=== PATIENT | male | born 1940 | race Caucasian/White ===

== ENCOUNTER 2016-12-20 09:16 | Day surgery (SDC) | payer MEDICARE, OTHER ==
--- NOTE | ~2016-12-20 | EGD ---
EGD REPORT [facility] [address] [place] [address] NAME: HEATHER HALL : [birth year] STATUS : REG [facility]#: [id number] AGE: 76 ADM/REG DATE : 12/20/16 MR#: [id number] REPORT SERV DATE: 12/20/16 DICTATED BY: EMILIANO CARBAJAL DATE: 12/20/16 REPORT STATUS : Draft TRANSCRIBED BY: [facility] DATE: 12/20/16 Endoscopy Center Patient Name: Heather Hall Date of : 1940 Attending MD: EMILIANO CARBAJAL MD Procedure Date No Time: 12/20/2016 Procedure: Upper GI endoscopy Indications: Dysphagia, Heartburn, Suspected esophageal reflux Referring MD: JASMINA PERDOMO Medicines: as per anesthesia Complications: No immediate complications. Procedure: Pre-Anesthesia Assessment: - ASA Grade Assessment: III - A patient with severe systemic disease. After obtaining informed consent, the endoscope was passed under direct vision. Throughout the procedure, the patient's blood pressure, pulse, and oxygen saturations were monitored continuously. The GIF [id number] was introduced through the mouth, and advanced to the third part of duodenum. The upper GI endoscopy was accomplished without difficulty. The patient tolerated the procedure. Findings: A mild Schatzki ring (acquired) was found at the gastroesophageal junction. The scope was withdrawn. Dilation was performed with a Salas dilator with no resistance at 46 Fr. Localized mild inflammation characterized by erythema was found in the gastric antrum. Biopsies were taken with a cold forceps for histology. The cardia and gastric fundus were normal on retroflexion. The examined duodenum was normal. Impression: - Mild Schatzki ring. Dilated. - Gastritis. Biopsied. - Normal examined duodenum. Recommendation: - Await pathology results. - Follow an antireflux regimen. - Continue present medications. Procedure Code(s): --- Professional --- 47019, Esophagogastroduodenoscopy, flexible, transoral; with biopsy, single or multiple 65516, Dilation of esophagus, by unguided sound or bougie, single or multiple passes EGD REPORT [facility] [address] [address] NAME: HEATHER HALL : [birth year] STATUS : REG [facility] [place] PAT#: [id number] AGE: 76 ADM/REG DATE : 12/20/16 MR#: [id number] REPORT SERV DATE: 12/20/16 DICTATED BY: EMILIANO CARBAJAL. DATE: 12/20/16 REPORT STATUS : Draft TRANSCRIBED BY: [employer] DATE: 12/20/16 Diagnosis Code(s): --- Professional --- K22.2, Esophageal obstruction K29.70, Gastritis, unspecified, without bleeding R13.10, Dysphagia, unspecified R12, Heartburn CPT copyright 2013 [employer]. All rights reserved. The codes documented in this report are preliminary and upon data coder operator review may be revised to meet current compliance requirements. EMILIANO CARBAJAL MD 12/20/2016 11:03 AM This report has been signed electronically. Number of Addenda: 0 Note Initiated On: 12/20/2016 10:47 AM Scope Withdrawal Time 0 hours 0 minutes 0 seconds [address] [id number]
--- NOTE | ~2016-12-20 | EGD ---
EGD REPORT [facility] [address] [place] [address] NAME: HEATHER LYNN : [birth year] STATUS : REG [facility]#: [id number] AGE: 76 ADM/REG DATE : 12/20/16 MR#: [id number] REPORT SERV DATE: 12/20/16 DICTATED BY: EMILIANO CARBAJAL DATE: 12/20/16 REPORT STATUS : Draft TRANSCRIBED BY: [facility] DATE: 12/20/16 Endoscopy Center Patient Name: Heather Lynn Date of : 1940 Attending MD: EMILIANO CARBAJAL MD Procedure Date No Time: 12/20/2016 Procedure: Colonoscopy Indications: High risk colon cancer surveillance: Personal history of colonic polyps, FH of Colon Cancer - 1st degree relative Referring MD: JASMINA Cleaning Medicines: as per anesthesia Complications: No immediate complications. Procedure: Pre-Anesthesia Assessment: - ASA Grade Assessment: III - A patient with severe systemic disease. After I obtained informed consent, the scope was passed under direct vision. Throughout the procedure, the patient's blood pressure, pulse, and oxygen saturations were monitored continuously. The PCF [id number] was introduced through the anus and advanced to the cecum, identified by appendiceal orifice and ileocecal valve. The colonoscopy was performed without difficulty. The patient tolerated the procedure. The quality of the bowel preparation was adequate to identify polyps. Findings: The perianal and digital rectal examinations were normal. A single medium-mouthed diverticulum was found in the transverse colon. Non-bleeding internal hemorrhoids were found during endoscopy and were mild. Impression: - Diverticulosis in the transverse colon. - Non-bleeding internal hemorrhoids. Recommendation: - Repeat colonoscopy in 5 years for surveillance. Procedure Code(s): --- Professional --- 28016, Colonoscopy, flexible, proximal to splenic flexure; diagnostic, with or without collection of specimen(s) by brushing or washing, with or without colon decompression (separate procedure) Diagnosis Code(s): --- Professional --- K64.8, Other hemorrhoids K57.30, Diverticulosis of large intestine without EGD REPORT [facility] [address] [facility] [place] [address] NAME: HEATHER LYNN : 44 STATUS : [place] [facility] [place] [id number] AGE: 76 ADM/REG DATE : 12/20/16 MR#: [id number] REPORT SERV DATE: 12/20/16 DICTATED BY: EMILIANO CARBAJAL DATE: 12/20/16 REPORT STATUS : Draft TRANSCRIBED BY: [employer] DATE: 12/20/16 perforation or abscess without bleeding Z86.010, Personal history of colonic polyps Z80.0, Family history of malignant neoplasm of digestive organs CPT copyright 2013 [employer]. All rights reserved. The codes documented in this report are preliminary and upon certified procedural coder review may be revised to meet current compliance requirements. EMILIANO CARBAJAL MD 12/20/2016 11:19 AM This report has been signed electronically. Number of Addenda: 0 Note Initiated On: 12/20/2016 10:43 AM Scope Withdrawal Time 0 hours 6 minutes 36 seconds [address] [facility] [place] [address]
[~2016-12-20 09:16] MED LIST: ALLEGRA180 PO; CYANO1000T PO; IBU800 PO; PRESERVISION A1 EAC1 PO; PRIM50B PO
== END 2016-12-20 23:59 | disposition home or self-care (01) ==
LOC: DMU 09:16
PROVIDERS: Internal Medicine Gastroenterology
PROC: 0DJD8ZZ Inspection of Lower Intestinal Tract, Via Natural or Artificial Opening Endoscopic (ICD-10-PCS; 2016-12-20)
PROC: 0D748ZZ Dilation of Esophagogastric Junction, Via Natural or Artificial Opening Endoscopic (ICD-10-PCS; principal; 2016-12-20 11:00)
PROC: 0DB68ZX Excision of Stomach, Via Natural or Artificial Opening Endoscopic, Diagnostic (ICD-10-PCS; 2016-12-20 11:00)
DX: K29.50 Unspecified chronic gastritis without bleeding (principal); K22.2 Esophageal obstruction; K64.8 Other hemorrhoids; K57.30 Diverticulosis of large intestine without perforation or abscess without bleeding; E11.9 Type 2 diabetes mellitus without complications; G47.33 Obstructive sleep apnea (adult) (pediatric); J38.3 Other diseases of vocal cords; H91.90 Unspecified hearing loss, unspecified ear; Z86.010 Personal history of colon polyps; Z80.0 Family history of malignant neoplasm of digestive organs; Z90.79 Acquired absence of other genital organ(s); Z79.899 Other long term (current) drug therapy; Z87.891 Personal history of nicotine dependence; Z85.46 Personal history of malignant neoplasm of prostate; Z98.890 Other specified postprocedural states
CPT/HCPCS: 82962; 88305